=== PATIENT | male | born 1990 ===

== ENCOUNTER 2018-02-27 14:11 | Emergency (ER) | payer OTHER ==
[2018-02-27 14:51] VITALS: BP 143/83; PULSE 110; RESP 18; TEMP 98.2; O2SAT 99
--- NOTE | 2018-02-27 15:20 | ED PDOC ---
Upper Extremity Pain/Injury Time Seen by Provider: 02/27/18 14:27 Chief Complaint (Nursing): Finger,Hand,&Wrist Chief Complaint (Provider): Wrist Injury History Per: Patient History/Exam Limitations: no limitations Onset/Duration Of Symptoms: Days (x1) Current Symptoms Are (Timing): Still Present Additional Complaint(s): Sagar Chowdhury is a 28 year old male with a past medical history of seizures, who is presenting to the ER with complaints of a radial fracture and left wrist pain, onset yesterday, s/p fall. Patient states that he had an outpatient X-Ray which was positive for a fracture, and was sent to the ED by Dr. Coronado. He denies any numbness, tingling, weakness, and loss of consciousness. Patient offers no other medical complaints at this time. PMD: Bhavik Coronado Past Medical History Reviewed: Historical Data, Nursing Documentation, Vital Signs Vital Signs: Last Vital Signs Temp 98.2 F 02/27/18 14:46 Pulse 110 H 02/27/18 14:46 Resp 18 02/27/18 14:46 BP 143/83 02/27/18 14:46 Pulse Ox 99 02/27/18 14:46 - Medical History PMH: Seizures - Surgical History Surgical History: No Surg Hx - Family History Family History: States: Unknown Family Hx - Living Arrangements Living Arrangements: With Family - Social History Current smoker - smoking cessation education provided: No Alcohol: None Drugs: Denies - Allergies Allergies/Adverse Reactions: Allergies Allergy/AdvReac Type Severity Reaction Status Date / Time No Known Allergies Allergy Verified 02/27/18 14:46 Review of Systems ROS Statement: Except As Marked, All Systems Reviewed And Found Negative Constitutional: Negative for: Fever, Chills Musculoskeletal: Positive for: Other (left wrist pain) Neurological: Negative for: Weakness, Numbness, Other (tingling, or loss of consciousness) Physical Exam - Reviewed Nursing Documentation Reviewed: Yes Vital Signs Reviewed: Yes - Physical Exam Appears: Positive for: Non-toxic, No Acute Distress Head Exam: Positive for: ATRAUMATIC Skin: Positive for: Normal Color Eye Exam: Positive for: Normal appearance ENT: Positive for: Normal ENT Inspection Neck: Positive for: Normal Respiratory: Negative for: Respiratory Distress Pulses-Radial (L): 2+ Pulses-Radial (R): 2+ Extremity: Positive for: Swelling, Other (sensation intact, able to move fingers ). Negative for: Normal ROM (decreased range of motion secondary to pain, left wrist ), Deformity Neurologic/Psych: Positive for: Alert, Oriented. Negative for: Motor/Sensory Deficits - ECG O2 Sat by Pulse Oximetry: 99 (RA) Pulse Ox Interpretation: Normal Medical Decision Making Medical Decision Making: Provider assessed patient in the ED and reviewed outpatient X-Ray. Case discussed with Dr. Silva. Provider sent images to Dr. Silva, which he reviewed. Dr. Silva advised to put patient in a short arm splint and for patient to follow up in his clinic. Scribe Attestation: Documented by Mimi Galicia, acting as a scribe for Tomasa Barnes PA-C. Provider Scribe Attestation: All medical record entries made by the Scribe were at my direction and personally dictated by me. I have reviewed the chart and agree that the record accurately reflects my personal performance of the history, physical exam, medical decision making, and the department course for this patient. I have also personally directed, reviewed, and agree with the discharge instructions and disposition. Disposition - Clinical Impression Clinical Impression: Radial fracture - Disposition Referrals: Austen Silva III, MD [Staff Provider] - Disposition: Routine/Home Disposition Time: 15:42 Condition: STABLE Instructions: Radius Fracture Forms: [facility] (Vietnamese) Print Language: ROMANSH
== END 2018-02-27 16:42 | disposition home or self-care (01) ==
LOC: H.ER 14:11
DX: S52.502A Unspecified fracture of the lower end of left radius, initial encounter for closed fracture (principal); W19.XXXA Unspecified fall, initial encounter; Y92.89 Other specified places as the place of occurrence of the external cause